=== PATIENT | male | born 1985 | race Caucasian/White ===

== ENCOUNTER 2025-09-01 07:50 | Outpatient (CLI) | payer BC, SELFPAY | END 2025-09-01 07:51 | disposition home or self-care (01) | LOC: NFLDREF 09-06 09:13 | PROVIDERS: PCP Internal Medicine; Referring Provider Internal Medicine; Visit Provider Internal Medicine | DX: I48.91 Unspecified atrial fibrillation (principal); Z00.00 Encounter for general adult medical examination without abnormal findings | CPT/HCPCS: 80053; 80061 ==